=== PATIENT | male | born 1950 | race Caucasian/White ===

== ENCOUNTER → 2020-04-13 07:19 | Outpatient (CLI) | payer OTHER, SELFPAY ==
--- NOTE | 2020-04-13 07:22 | CT_ITS ---
STUDY: CT SCAN LOWER EXTREMITY RIGHT REASON FOR EXAM: Male, 69 years old. [facility] RIGHT KNEE RADIATION DOSAGE (If Supplied By Facility): CTDIvol = ( 20.10 ) mGy, DLP = ( 1129.30 ) mGycm. Individualized dose optimization techniques were used for this CT.? TECHNIQUE: Multiple axial tomographic images of the right hip joint, knee joint and ankle joint were obtained. Coronal and sagittal reconstruction was obtained as well. COMPARISON: None. FINDINGS: Imaging of the right hip joint was obtained. No significant abnormality is seen. The joint space is well-maintained. Mild degree of joint space narrowing involving the medial compartment of knee joint with minimal subchondral sclerosis. Minimal narrowing of the patellofemoral joint with mild degenerative spurring along the anterior and superior aspects of the articular surface of the patella. Small joint effusion. Imaging of the ankle joint was obtained. The ankle mortise is intact. No significant abnormality is seen. 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
--- NOTE | 2020-04-13 09:28 | EKG12_ITS ---
Test Reason : PRE SURGERY Blood Pressure : / mmHG Vent. Rate : 065 BPM Atrial Rate : 065 BPM P-R Int : 184 ms QRS Dur : 094 ms QT Int : 424 ms P-R-T Axes : 062 012 033 degrees QTc Int : 440 ms Sinus rhythm with frequent Premature ventricular complexes Otherwise normal ECG Confirmed by LOWELL HANDLEY, KYLE ([id number]), marketing editor LIANNE FELICIANO ([id number]) on 04/14/2020 9:22:17 AM Referred By: Jasbir Buck Confirmed By:KYLE ETIENNE MD
[2020-04-13 10:07] LABS: Absolute Lymphocyte Count 1.86 X10^3/uL (0.83-4.51); Absolute Neutrophil Count 4.8 X10^3/uL (2.0-7.7); Basophil# 0.07 X10^3/uL; Basophil% 0.9 % (0-1); Eosinophil# 0.28 X10^3/uL; Eosinophils% 3.5 % (0-5); Hematocrit 46.9 % (40-54); Hemoglobin 14.9 g/dL (13.0-16.5); Lymphocyte # 1.86 X10^3/ul (4.0); Lymphocyte % 23.6 % (19-41); Mean Corp Hgb Conc 31.8 g/dL (32-36); Mean Corpuscular Hgb 30.3 pg (27.0-32.0); Mean Corpuscular Volume 95.5 fL (80-94); Mean Platelet Vol. 11.6 fl (6.2-12.0); Monocyte# 0.91 X10^3/uL; Monocyte% 11.5 % (0-10); NRBC Flagged by Analyzer 0 % (0-5); Neutrophil # 4.76 X10^3/uL (2.7-7.7); Neutrophil % 60.4 % (47-70); Platelet Count 192 K/mm3 (150-450); RBC Distribution Width CV 12.8 % (11.6-14.6); RBC Distribution Width SD 45.4 fl (35.1-43.9); Red Blood Count 4.91 M/mm3 (4.6-6.2); White Blood Count 7.9 K/mm3 (4.4-11.0)
[2020-04-13 10:49] LABS: BUN 14 mg/dL (7-18); Glucose 89 mg/dL (74-106)
[2020-04-13 10:50] LABS: Anion Gap 4 (5-15); BUN/Creat Ratio 14.2 RATIO (10-20); Chloride 107 mmol/L (98-107); Creatinine, Serum 0.98 mg/dL (0.70-1.30); EST Glomerular Filtration Rate 80 mL/min (>60); Est Glom Filt Rate - Afr Amer 97 mL/min (>60); PSA,Total - Annual Screen 0.51 ng/mL (0.00-4.00); Potassium 4.1 mmol/L (3.5-5.1); Sodium Level 140 mmol/L (136-145)
== END ==
PROVIDERS: Physician Assistant Surgical; PCP Orthopaedic Surgery; Referring Provider Specialist; Visit Provider Specialist
DX: Z01.810 Encounter for preprocedural cardiovascular examination (principal); Z01.818 Encounter for other preprocedural examination; M25.561 Pain in right knee; E11.9 Type 2 diabetes mellitus without complications; M21.161 Varus deformity, not elsewhere classified, right knee
CPT/HCPCS: 36415; 73700; 80048; 84153; 85025; 93005; G0103